=== PATIENT | male | born 1985 | race African-American/Black ===

== ENCOUNTER 2017-03-31 17:35 | Emergency (ER) | payer OTHER ==
--- NOTE | 2017-03-31 18:57 | ER Document Report ---
ED Oral Problem - General Mode of Arrival: Ambulatory Information source: Patient TRAVEL OUTSIDE OF THE [place] IN LAST 30 DAYS: No - General Chief Complaint: Mouth Problem Stated Complaint: MOUTH PAIN Time Seen by Provider: 03/31/17 18:31 - HPI Notes: Patient is a 32-year-old male presents emergency department with upper left jaw pain 2-3 days. Patient states that he believes he broke his tooth when he was eating something. Patient states he has cold sensitivity and pain with chewing. Patient has had a decreased appetite. Patient denies any facial swelling, drainage from his tooth, or any fevers. Patient does not have a dentist and states that he recently moved to the area and does not have dental insurance. Patient does ask about any dental clinics in the area. Patient has a history of hypertension. (JOHN KAUFMAN) - Related Data Allergies/Adverse Reactions: banana Allergy (Verified 03/31/17 18:22) NSAIDS (Non-Steroidal Anti-Inflamma Allergy (Verified 03/31/17 18:22) Past Medical History - General Information source: Patient - Social History Smoking Status: Never Smoker Cigarette use (# per day): No Chew tobacco use (# tins/day): No Smoking Education Provided: No Frequency of alcohol use: Rare Drug Abuse: None Family History: None Patient has suicidal ideation: No Patient has homicidal ideation: No - Past Medical History Cardiac Medical History: Reports: Hx Hypertension GI Medical History: Reports: Hx Hiatal Hernia Past Surgical History: Reports: Hx Orthopedic Surgery Review of Systems - Review of Systems Constitutional: No symptoms reported EENT: See HPI, Mouth pain, Dental problem Skin: No symptoms reported -: Yes All other systems reviewed and negative Physical Exam - Vital signs Interpretation: Normal - Vital signs Vitals: Temp Pulse Resp BP Pulse Ox 98.1 F 65 16 144/94 H 97 03/31/17 18:20 03/31/17 18:20 03/31/17 18:20 03/31/17 18:20 03/31/17 18:20 - Notes Notes: GENERAL: Alert, interacts well. No acute distress. HEAD: Normocephalic, atraumatic. No facial swelling. EYES: Pupils equal, round, and reactive to light. Extraocular movements intact. ENT: Oral mucosa moist, tongue midline. Filling is in a good position with no missing pieces. Filling appears to be made of metallic amalgam. Tooth #14 is tender to palpate and percuss as well as tenderness to the gums above this tooth. No erythema, sign of abscess, or swelling. Small petechiae which is suspicious for a possible infection. NECK: Full range of motion. Supple. Trachea midline. LUNGS: No respiratory distress. EXTREMITIES: Moves all 4 extremities spontaneously. No edema. No cyanosis. NEUROLOGICAL: Alert and oriented x3. Normal speech. PSYCH: Normal affect, normal mood. SKIN: Warm, dry, normal turgor. (JOHN KAUFMAN) Course - Re-evaluation Re-evalutation: 03/31/17 19:45 Dental blocks including inferior alveolar and infraorbital blocks were done on the left-hand side using a combination of lidocaine 1% and bupivacaine 0.5% using a total 5 mL's of a 50-50 mixture. Patient tolerated this well, will be started on Pen-Vee K and discharged to home with Tessalon Luises and referrals to dental clinics. (NEGIN HARRINGTON) - Vital Signs Vital signs: Temp Pulse Resp BP Pulse Ox 98.1 F 66 18 135/100 H 98 03/31/17 18:20 03/31/17 20:11 03/31/17 20:11 03/31/17 20:11 03/31/17 20:11 Discharge - Discharge Clinical Impression: Pain, dental Hypertension Qualifiers: Hypertension type: essential hypertension Qualified Code(s): I10 - Essential ( primary) hypertension Condition: Stable Disposition: HOME, SELF-CARE Additional Instructions: Dental Infection or Abscess You have an infection of the gum around one of your teeth, which is probably decayed. If there is an abscess, it may drain on its own or it may need to be opened or lanced. Severe swelling or drainage around a tooth usually means a deep dental abscess which usually requires evaluation and treatment by a dentist or oral surgeon. Antibiotics may be prescribed while awaiting dental treatment. If you develop high fever with chills, worsening pain, or increasing swelling in the area, see a dentist or oral surgeon immediately or return to the Emergency Department immediately. Prescriptions: Benzonatate [Tessalon Perles 100 mg Capsule] 100 mg PO Q8HP PRN #30 capsule PRN Reason: Penicillin V Potassium [Penicillin Vk 500 mg Tablet] 500 mg PO BID #20 tablet Referrals: [facility] [Provider Group] - Follow up as needed Scribe Attestation: 03/31/17 23:56 I personally performed the services described in the documentation, reviewed and edited the documentation which was dictated to the scribe in my presence, and it accurately records my words and actions. (NEGIN HARRINGTON) Scribe Documentation - Scribe Written by Vanesa:: Vanesa Bronson, 03/31/2017, 19:30 acting as scribe for :: Sue
[2017-03-31] MEDS ORDERED: LIDOCAINE 1% INJ-PF (10 MG/ML) 30 ML SDV INJ ONE (19:12)
[2017-03-31] MEDS ORDERED: BUPIVACAINE HCL 0.5 % INJ/PF 30 ML SDV INJ ONE (19:12)
[2017-03-31] MEDS ORDERED: PENICILLIN V POTASSIUM 500 MG TABLET PO ONE (19:14)
[2017-03-31 20:15] VITALS: BP 135/100
== END 2017-03-31 20:14 | disposition home or self-care (01) ==
LOC: ER 17:35
PROC: 3E0T3BZ Introduction of Anesthetic Agent into Peripheral Nerves and Plexi, Percutaneous Approach (ICD-10-PCS; principal; 2017-03-31)
DX: K08.89 Other specified disorders of teeth and supporting structures (principal); R68.84 Jaw pain; I10 Essential (primary) hypertension
CPT/HCPCS: 99282; 64400; J3490

== ENCOUNTER 2017-07-22 16:03 | Emergency (ER) | payer OTHER ==
[2017-07-22 16:34] VITALS: BP 132/79
[2017-07-22] MEDS ORDERED: TRAMADOL HCL 50 MG TABLET PO ONE (16:42)
--- NOTE | 2017-07-22 16:49 | ER Document Report ---
ED Extremity Problem, Lower - General Chief Complaint: Knee Pain Stated Complaint: RIGHT KNEE PAIN Time Seen by Provider: 07/22/17 16:28 Mode of Arrival: Ambulatory Information source: Patient Notes: 32-year-old male presents to ED for complaint of right knee pain for the last day and a half. He states he has chronic pain and this area but his [place] doctor who prescribes him his medication did not write him a new prescription because he needed to have his lab work completed first. TRAVEL OUTSIDE OF THE [place] IN LAST 30 DAYS: No - HPI Patient complains to provider of: Pain Location: Knee Occurred: Other - 1.5 days and chronic Where: Home, Indoors Onset/Duration: Intermittent Quality of pain: Sharp Severity: Moderate Pain Level: 3 Context: Other - painful ambulation Recent injury: No Associated symptoms: Painful ambulation Exacerbated by: Movement, Walking Relieved by: Nothing - Related Data Allergies/Adverse Reactions: banana Allergy (Verified 07/22/17 16:31) NSAIDS (Non-Steroidal Anti-Inflamma Allergy (Verified 07/22/17 16:31) Home Medications: Current Home Medications Amlodipine Besylate 10 mg PO QHS 07/22/17 [History] Atorvastatin Calcium 20 mg PO QHS 07/22/17 [History] Duloxetine HCl 20 mg PO DAILY 07/22/17 [History] Methocarbamol [Robaxin] 500 mg PO ASDIR PRN 07/22/17 [History] Nortriptyline HCl 4 tab PO QHS 07/22/17 [History] Tramadol HCl [Ultram] 50 mg PO ASDIR PRN 07/22/17 [History] Past Medical History - General Information source: Patient - Social History Smoking Status: Former Smoker Cigarette use (# per day): No Chew tobacco use (# tins/day): No Smoking Education Provided: No Frequency of alcohol use: Rare Drug Abuse: None Lives with: Family Family History: None Patient has suicidal ideation: No Patient has homicidal ideation: No - Past Medical History Cardiac Medical History: Reports: Hx Hypercholesterolemia, Hx Hypertension Pulmonary Medical History: Reports: None EENT Medical History: Reports: None Neurological Medical History: Reports: None Endocrine Medical History: Reports: None Renal/ Medical History: Reports: None GI Medical History: Reports: Hx Gastritis, Hx Hiatal Hernia, Hx Ulcer, Hx Colonoscopy, Hx Endoscopy Musculoskeltal Medical History: Reports Hx Arthritis, Reports Hx Musculoskeletal Deformity, Reports Hx Musculoskeletal Trauma Skin Medical History: Reports None Psychiatric Medical History: Reports: None Traumatic Medical History: Reports: Hx Fractures Infectious Medical History: Reports: None Past Surgical History: Reports: Hx Orthopedic Surgery Review of Systems - Review of Systems Constitutional: No symptoms reported EENT: No symptoms reported Cardiovascular: No symptoms reported Respiratory: No symptoms reported Gastrointestinal: No symptoms reported Genitourinary: No symptoms reported Male Genitourinary: No symptoms reported Musculoskeletal: Other - right knee pain wearing a brace in the ed Skin: No symptoms reported Hematologic/Lymphatic: No symptoms reported Neurological/Psychological: No symptoms reported -: Yes All other systems reviewed and negative Physical Exam - Vital signs Vitals: Temp Pulse Resp BP Pulse Ox 97.9 F 101 H 16 132/79 H 98 07/22/17 16:26 07/22/17 16:26 07/22/17 16:26 07/22/17 16:26 07/22/17 16:26 Interpretation: Normal - General General appearance: Appears well, Alert - HEENT Head: Normocephalic, Atraumatic Eyes: Normal Pupils: PERRL - Respiratory Respiratory status: No respiratory distress Chest status: Nontender Breath sounds: Normal Chest palpation: Normal - Cardiovascular Rhythm: Regular Heart sounds: Normal auscultation Murmur: No - Abdominal Inspection: Normal Distension: No distension Bowel sounds: Normal Tenderness: Nontender Organomegaly: No organomegaly - Back Back: Normal, Nontender - Extremities General upper extremity: Normal inspection, Nontender, Normal color, Normal ROM , Normal temperature General lower extremity: Normal inspection, Normal color, Normal ROM, Normal temperature, Normal weight bearing. No: Lizy's sign Knee: Tender, Pain with ROM, Patellar tendon intact, Tender joint line. No: Abrasion, Deformity, Dislocation, Drawer's test instability, Ecchymosis, Instability, Joint effusion, Laceration, Laxity with valgus stress, Laxity with varus stress, Popliteal fossa tender - Neurological Neuro grossly intact: Yes Cognition: Normal Orientation: AAOx4 Katiana Coma Scale Eye Opening: Spontaneous Amity Coma Scale Verbal: Oriented Katiana Coma Scale Motor: Obeys Commands Katiana Coma Scale Total: 15 Speech: Normal Motor strength normal: LUE, RUE, LLE, RLE Sensory: Normal - Psychological Associated symptoms: Normal affect, Normal mood - Skin Skin Temperature: Warm Skin Moisture: Dry Skin Color: Normal Course - Vital Signs Vital signs: Temp Pulse Resp BP Pulse Ox 97.9 F 101 H 16 132/79 H 98 07/22/17 16:26 07/22/17 16:26 07/22/17 16:26 07/22/17 16:26 07/22/17 16:26 Discharge - Discharge Clinical Impression: Chronic pain of right knee HTN (hypertension) Qualifiers: Hypertension type: unspecified Qualified Code(s): I10 - Essential (primary) hypertension Condition: Stable Disposition: HOME, SELF-CARE Additional Instructions: He was seen today for chronic right knee pain. He states he did not fall and have not had any injury. He states his been hurting for about a day and a half. He states he normally take Ultram, Robaxin, nortriptyline, and Cymbalta for your chronic pain. He states she been out of Ultram and Robaxin for a couple months because you get these from the [place] and she has not written any recently. I will give you one Ultram while in the emergency room but you need to follow-up with your [facility] doctor for any further pain medications as we do not treat chronic pain with narcotics and you state you have a problem taken ibuprofen due to your history of IBS and colon polyps. Call your [facility] doctor on Tuesday and tell them again that you are out of your pain medications. Use elevation ice and warm packs for your chronic pain. You can also use Aspercreme to the area. Continue wearing her brace as you work today. ICE & ELEVATION: Apply ice packs frequently against the painful area. Many different schedules are recommended, such as "20 minutes on, 20 minutes off" or "one hour ice, two hours rest." If you need to work, you may need to go longer between ice treatments. You should plan to have the area ice packed AT LEAST one- fourth of the time. The ice should be applied over the wrap, tape, or splint, or over a layer of cloth -- not directly against the skin. Some ice bags have a built-in cloth and can be put directly on the skin. Your injured part should be elevated as much as possible over the next 48 hours. Try to keep the injury above the level of the heart. Avoid use of the injured area. Elevation and rest will decrease the swelling. Ultram You were given and Ultram while in the emergency room today. Follow-up with your primary doctor to get a refill on your Ultram Ultram is an excellent drug for pain relief. It is not a narcotic, but it works in a similar way. Ultram can take up to two hours for full effect. Although not addicting, Ultram is best avoided in patients with a history of drug abuse. Ultram should not be used with alcohol, sleeping pills, or narcotics. If you're prone to seizures, Ultram can make you more likely to have a seizure. Ultram can be hazardous when combined with MAO-inhibitor antidepressants (such as Nardil or Parnate). Be sure your doctor is aware of all medicines you are taking. Persons with severe liver or kidney disease should increase the time between doses of Ultram. Discuss this with your doctor if you're uncertain. Side effects of Ultram can include dizziness, nausea, constipation, sleepiness, and itching. (These side effects are also seen with narcotic pain medicines.) Please call your doctor if you have other disturbing effects. FOLLOW-UP CARE: If you have been referred to a physician for follow-up care, call the physician s office for an appointment as you were instructed or within the next two days. If you experience worsening or a significant change in your symptoms, notify the physician immediately or return to the Emergency Department at any time for re-evaluation. Forms: Elevated Blood Pressure
== END 2017-07-22 17:14 | disposition home or self-care (01) ==
LOC: ER 16:03
DX: G89.29 Other chronic pain (principal); M25.561 Pain in right knee; I10 Essential (primary) hypertension; Z91.018 Allergy to other foods; Z88.8 Allergy status to other drugs, medicaments and biological substances; Z87.891 Personal history of nicotine dependence
CPT/HCPCS: 99283

== ENCOUNTER 2018-01-09 08:21 | Day surgery (SDC) | payer MEDICAID, OTHER ==
[~2018-01-09 08:21] MED LIST: PROPOFOL INJ 200 MG/20 ML VIAL IV ONE
[2018-01-09 10:32] VITALS: BP 102/78
--- NOTE | 2018-01-09 12:08 | Operative Report ---
Operative Report DATE OF SURGERY: 01/09/18 Operative Report: The risks, benefits and alternatives of the procedure including risk of bleeding , perforation requiring surgery are explained to the patient in detail and informed consent is obtained. The patient was brought back to the endoscopy suite and placed in the left, lateral decubital position. Timeout was called. Propofol medication is administered. A rectal examination is done which did not reveal any masses, tears or fissures. An Olympus endoscope was inserted into the patient's rectum. The scope was then carefully advanced all the way to the cecum. The cecum was identified by the usual anatomical landmarks including the ileocecal valve as well as appendiceal office. Photodocumentation was obtained. The scope was then sequentially pulled back via the various segments of the colon including the ascending colon, hepatic flexure, transverse colon, splenic flexure, descending colon and finally to the rectosigmoid portions of the colon. Retroflexion maneuver was performed. The risks benefits and alternatives of the procedure explained to the patient in detail and informed consent is obtained.A GIF Olympus video scope was inserted into the patient's mouth and hypopharynx, the esophagus is identified intubated and insufflated ,the scope was then advanced through the esophagus stomach and duodenum ,retroflexion maneuver is done ,the esophagus stomach and first and second portions of the duodenum examined PREOPERATIVE DIAGNOSIS: Personal history of polyps POSTOPERATIVE DIAGNOSIS: Right-sided colon inflammation status post biopsy. Internal hemorrhoids. Gastritis status post biopsy rule out Helicobacter pylori OPERATION: Colonoscopy with biopsy. EGD with biopsy SURGEON: GALLO BETANCOURT ANESTHESIA: LMAC TISSUE REMOVED OR ALTERED: As noted above. COMPLICATIONS: None. ESTIMATED BLOOD LOSS: None. INTRAOPERATIVE FINDINGS: As noted above. PROCEDURE: Patient tolerated the procedure well. No immediate postprocedure complications are noted. Patient discharged in good condition. Discharge date 01/09/2018. Discharge diet: Regular. Discharge activity: Regular. 2-3-week follow-up to discuss findings. Patient is instructed to call the office or proceed to the emergency room should there be any further problems or questions. Wait on the pathology.
== END 2018-01-09 10:10 | disposition home or self-care (01) ==
LOC: END 08:21
PROVIDERS: ATTEND Internal Medicine Gastroenterology
DX: Z12.11 Encounter for screening for malignant neoplasm of colon (principal); K52.9 Noninfective gastroenteritis and colitis, unspecified; K64.8 Other hemorrhoids; Z86.010 Personal history of colon polyps; K29.50 Unspecified chronic gastritis without bleeding; K21.9 Gastro-esophageal reflux disease without esophagitis; I10 Essential (primary) hypertension; M19.90 Unspecified osteoarthritis, unspecified site
CPT/HCPCS: 43239; 45380; 88342 ×2; 88305 ×2; J2704; 813

== ENCOUNTER → 2018-05-06 | Outpatient (CLI) | payer MEDICAID ==
[2018-05-06 10:08] LABS: ABSOLUTE EOSINOPHILS # (AUTO) 0.2 10^3/uL (0.0-0.6); ABSOLUTE LYMPHOCYTES (AUTO) 1.4 10^3/uL (0.5-4.7); ABSOLUTE MONOCYTES (AUTO) 0.4 10^3/uL (0.1-1.4); ABSOLUTE NEUT (AUTO) 2.4 10^3/uL (1.7-8.2); BASOPHILS % (AUTO) 0.9 % (0-2); EOSINOPHILS % (AUTO) 4.5 % (0-6); LYMPHOCYTES % (AUTO) 32.3 % (13-45); MEAN CORPUSCULAR HEMOGLOBIN 32.1 pg (27.0-33.4); MEAN CORPUSCULAR HGB CONC 34.2 g/dL (32.0-36.0); MEAN CORPUSCULAR VOLUME 94 fl (80-97); MONOCYTES % (AUTO) 8.5 % (3-13); PLATELET COUNT 210 10^3/uL (150-450); RED BLOOD COUNT 4.68 10^6/uL (4.35-5.55); RED CELL DISTRIBUTION WIDTH 13.8 % (11.5-14.0); SEGMENTED NEUTROPHILS % (AUTO) 53.8 % (42-78); TOTAL CELLS COUNTED % (AUTO) 100 %; WHITE BLOOD COUNT 4.4 10^3/uL (4.0-10.5)
[2018-05-06 10:18] LABS: ALANINE AMINOTRANSFERASE 63 U/L (21-72); ALBUMIN 4.1 g/dL (3.5-5.0); ALKALINE PHOSPHATASE 53 U/L (38-126); ANION GAP 6 (5-19); ASPARTATE AMINO TRANSFERASE 34 U/L (17-59); BILIRUBIN,DIRECT 0.2 mg/dL (0.0-0.4); BILIRUBIN,TOTAL 0.5 mg/dL (0.2-1.3); BLOOD UREA NITROGEN 17 mg/dL (7-20); CALCIUM 9.2 mg/dL (8.4-10.2); CARBON DIOXIDE 26 mmol/L (22-30); CHLORIDE 110 mmol/L (98-107); CHOLESTEROL 152.81 mg/dL (0-200); GLUCOSE 86 mg/dL (75-110); POTASSIUM 4.6 mmol/L (3.6-5.0); SODIUM 142.4 mmol/L (137-145); TOTAL PROTEIN 7.4 g/dL (6.3-8.2); TRIGLYCERIDES 71 mg/dL (<150)
[2018-05-06 10:29] LABS: DIRECT LDL 66 mg/dL (<100)
== END ==
LOC: LAB 09:47
PROVIDERS: ATTEND Nurse Practitioner Family
DX: I10 Essential (primary) hypertension (principal)
CPT/HCPCS: 36415; 80053; 80061; 84443; 85025

== ENCOUNTER 2018-07-07 20:45 | Emergency (ER) | payer MEDICAID ==
[2018-07-07 20:54] VITALS: BP 144/87
--- NOTE | 2018-07-07 21:44 | ER Document Report ---
ED General - General Chief Complaint: Back Pain Stated Complaint: BACK PAIN Time Seen by Provider: 07/07/18 21:31 Notes: Patient is a 33-year-old male who presents emergency department with left back pain. He states his pain is mainly in his left flank area. He denies any heavy lifting. When asked if his back hurts normally, he said yes, but this pain is different. He feels it is more of an internal pain. He denies any dysuria or hematuria. He has a history of hypertension, GERD, and dyslipidemia. He has not taken any medication to help with the pain. TRAVEL OUTSIDE OF THE [place] IN LAST 30 DAYS: No - Related Data Allergies/Adverse Reactions: NSAIDS (Non-Steroidal Anti-Inflamma Allergy (Severe, Verified 01/09/18 08:42) SWELLING BLEEDING banana Allergy (Intermediate, Verified 01/09/18 08:42) ITCHING Past Medical History - Social History Smoking Status: Never Smoker Frequency of alcohol use: None Lives with: Spouse/Significant other Family History: None, Reviewed & Not Pertinent - Past Medical History Cardiac Medical History: Reports: Hx Hypercholesterolemia, Hx Hypertension Denies: Hx Coronary Artery Disease, Hx Heart Attack Pulmonary Medical History: Denies: Hx Asthma, Hx Bronchitis, Hx COPD, Hx Pneumonia Neurological Medical History: Denies: Hx Cerebrovascular Accident, Hx Seizures Renal/ Medical History: Denies: Hx Peritoneal Dialysis GI Medical History: Reports: Hx Gastritis, Hx Hiatal Hernia, Hx Ulcer, Hx Colonoscopy, Hx Endoscopy Musculoskeletal Medical History: Reports Hx Arthritis, Reports Hx Musculoskeletal Deformity, Reports Hx Musculoskeletal Trauma Traumatic Medical History: Reports: Hx Fractures Past Surgical History: Reports: Hx Orthopedic Surgery - Immunizations Hx Diphtheria, Pertussis, Tetanus Vaccination: Yes Review of Systems - Review of Systems Notes: REVIEW OF SYSTEMS: CONSTITUTIONAL : Denies recent illness. Denies recent unintentional weight loss. Denies fever, chills, or sweats. EENT: Denies eye, ear, throat, or mouth pain, discharge, or symptoms. Denies nasal or sinus congestion. CARDIOVASCULAR: Denies chest pain. RESPIRATORY: Denies shortness of breath, cough, congestion, difficulty breathing , or wheezing. GASTROINTESTINAL: Denies nausea, vomiting, and diarrhea. Denies abdominal pain. Denies constipation. GENITOURINARY: Denies difficulty urinating, burning, blood in urine, urgency or frequency. MUSCULOSKELETAL: See HPI SKIN: Denies rash, itchiness, or lesions HEMATOLOGIC : Denies easy bruising or bleeding. LYMPHATIC: Denies swollen, painful, enlarged glands. NEUROLOGICAL: Denies no numbness or tingling denies weakness. Denies headache. Denies altered mental status. Denies alteration in speech. PSYCHIATRIC: Denies stress, anxiety, alteration in sleep patterns, or depression. All other systems reviewed and negative. Physical Exam - Vital signs Vitals: Temp Pulse BP Pulse Ox 98.5 F 80 144/87 H 97 07/07/18 20:51 07/07/18 20:51 07/07/18 20:51 07/07/18 20:51 - Notes Notes: PHYSICAL EXAMINATION: GENERAL: Appears well, healthy, well-nourished, no acute distress. HEAD: Normocephalic, atraumatic. EYES: PERRL, conjunctiva normal, all extraocular movements intact, sclera nonicteric ENT: Moist mucous membranes. NECK: Supple, no noticeable swelling, redness, rash. Normal range of motion. LUNGS: Equal breath sounds bilaterally and clear to auscultation. No wheezes rales or rhonchi. CARDIOVASCULAR: S1-S2, regular rate, regular rhythm. Radial pulses 2+, normal. ABDOMEN: Normoactive bowel sounds. Soft, nontender, no guarding, no rebound tenderness, and no masses palpated. EXTREMITIES: Normal strength and range of motion, no pitting or edema. No cyanosis. NEUROLOGICAL: Moves all extremities upon command. Strength 5/5 in all extremities. PSYCH: Normal mood, normal affect. SKIN: Warm, dry. No rash, lesions, ulcerations noted. Normal skin turgor. Course - Re-evaluation Re-evalutation: 07/07/18 23:19 Patient's urinalysis is unremarkable. When asked again about his pain, he stated that when he eats his pain is worse. He will be given a GI cocktail to help with his pain. He will also be sent for an ultrasound for further diagnostic examination. 07/08/18 01:00 Patient's ultrasound shows multiple small stones, with the largest being 8 mm in size. I have discussed these findings with the patient. He will be given Flomax for his kidney stones. He will also be given oral morphine for the pain. - Vital Signs Vital signs: Temp Pulse Resp BP Pulse Ox 98.5 F 80 144/87 H 97 07/07/18 20:51 07/07/18 20:51 07/07/18 20:51 07/07/18 20:51 - Laboratory Laboratory results interpreted by me: 07/07/18 22:00 Urine Ascorbic Acid 40 H Discharge - Discharge Clinical Impression: Kidney stones Condition: Stable Disposition: HOME, SELF-CARE Additional Instructions: You are seen in the emergency department for left back pain. You have kidney stones, causing your back pain. Please follow-up with a urologist on Tuesday. You can take morphine, the prescription you were given during this visit as needed for the pain. You have also been given a medication called Flomax, medication to help you pass the stones. If you have worsening pain, develop a fever greater than 100.4 F, or have any symptoms that are worrisome to you, please return to the emergency department. Prescriptions: Morphine Sulfate [Morphine Ir 15 Mg Tablet] 15 mg PO BID #8 tablet Tamsulosin HCl [Flomax 0.4 mg Cap.sr] 0.4 mg PO DAILY #10 cap.sr.24h Referrals: [facility] [Provider Group] - 07/10/18
[2018-07-07] MEDS ORDERED: ACETAMINOPHEN 325 MG TABLET PO ONE (22:06)
[2018-07-07 22:17] LABS: APPEARANCE,URINE CLEAR; BILIRUBIN,URINE NEGATIVE (NEGATIVE); COLOR,URINE YELLOW; GLUCOSE, URINE NEGATIVE (NEGATIVE); KETONES,URINE NEGATIVE (NEGATIVE); LEUKOCYTE ESTERASE,URINE NEGATIVE (NEGATIVE); NITRITE,URINE NEGATIVE (NEGATIVE); PROTEIN,URINE NEGATIVE (NEGATIVE); URINE SPECIFIC GRAVITY 1.025; UROBILINOGEN,URINE NEGATIVE mg/dL (<2.0)
[2018-07-07] MEDS ORDERED: MAG HYDROX/AL HYDROX/SIMETH SUSP 30 ML UDCUP PO ONE (22:48)
[2018-07-07] MEDS ORDERED: METOCLOPRAMIDE HCL ORAL SOLN 10 MG/10 ML UDCUP PO ONE (22:48)
[2018-07-07] MEDS ORDERED: LIDOCAINE 2% VISCOUS SOLN 20 ML UDCUP PO ONE (22:48)
--- NOTE | 2018-07-08 00:35 | RADIOLOGY REPORT (SQ) ---
EXAM DESCRIPTION: US ABDOMEN DOPPLER LIMITED COMPLETED DATE/TME: 07/07/2018 22:48 CLINICAL HISTORY: 33 years Male Left upper abdominal pain COMPARISON: None. TECHNIQUE: Transabdominal grayscale imaging performed to evaluate the left upper quadrant FINDINGS: Left kidney measures 9.4 cm. No hydronephrosis. Multiple small echogenic foci in the kidney and the largest measuring 8 mm. Spleen is normal in size. IMPRESSION: Left renal calculi without hydronephrosis
[2018-07-08] MEDS ORDERED: KETOROLAC TROMETHAMINE 60 MG/2 ML SDV IM ONE (01:08)
== END 2018-07-08 01:42 | disposition home or self-care (01) ==
LOC: ER 20:45
DX: N20.0 Calculus of kidney (principal); M54.9 Dorsalgia, unspecified; E78.00 Pure hypercholesterolemia, unspecified; I10 Essential (primary) hypertension
CPT/HCPCS: 99284; 96372; 81001; 76705; 93976; J3490 ×4; J1885

== ENCOUNTER 2018-08-10 00:58 | Emergency (ER) | payer MEDICAID ==
[2018-08-10] MEDS ORDERED: TETRACAINE HCL 0.5% OPH SOLN 4 ML OU ONE (01:24)
[2018-08-10 02:24] VITALS: BP 143/82
--- NOTE | 2018-08-10 02:30 | ER Document Report ---
ED General - General Chief Complaint: Eye Injury Stated Complaint: EYE PROBLEM Time Seen by Provider: 08/10/18 01:23 Notes: Patient is a 33-year-old male who presents with complaint of bilateral eye pain. 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 Says he does not remember a specific flash but got home from work and lay down and woke up with severe eye pain and redness. Therefore came to the ER. He denies any trauma to the eyes. No foreign bodies into the eyes. No other complaints at this time. Bright lights make the eye pain much worse. TRAVEL OUTSIDE OF THE [place] IN LAST 30 DAYS: No - Related Data Allergies/Adverse Reactions: NSAIDS (Non-Steroidal Anti-Inflamma Allergy (Severe, Verified 01/09/18 08:42) SWELLING BLEEDING banana Allergy (Intermediate, Verified 01/09/18 08:42) ITCHING Past Medical History - Social History Smoking Status: Never Smoker Chew tobacco use (# tins/day): No Frequency of alcohol use: None Drug Abuse: None Family History: None, Reviewed & Not Pertinent Patient has suicidal ideation: No Patient has homicidal ideation: No - Past Medical History Cardiac Medical History: Reports: Hx Hypercholesterolemia, Hx Hypertension Denies: Hx Coronary Artery Disease, Hx Heart Attack Pulmonary Medical History: Denies: Hx Asthma, Hx Bronchitis, Hx COPD, Hx Pneumonia Neurological Medical History: Denies: Hx Cerebrovascular Accident, Hx Seizures Renal/ Medical History: Denies: Hx Peritoneal Dialysis GI Medical History: Reports: Hx Gastritis, Hx Hiatal Hernia, Hx Ulcer, Hx Colonoscopy, Hx Endoscopy Musculoskeletal Medical History: Reports Hx Arthritis, Reports Hx Musculoskeletal Deformity, Reports Hx Musculoskeletal Trauma Traumatic Medical History: Reports: Hx Fractures Past Surgical History: Reports: Hx Orthopedic Surgery - Immunizations Hx Diphtheria, Pertussis, Tetanus Vaccination: Yes Review of Systems - Review of Systems Notes: My Normal Review Basic REVIEW OF SYSTEMS: CONSTITUTIONAL : Denies fever, chills, or sweats. Denies recent illness. EENT: Eye pain. No runny nose cough or congestion. SKIN: Denies rash or skin lesions. HEMATOLOGIC : Denies easy bruising or bleeding. NEUROLOGICAL: Denies altered mental status or loss of consciousness. Denies weakness or paralysis or loss of use of either side. Denies problems with gait or speech. Denies sensory or motor loss. ALL OTHER SYSTEMS REVIEWED AND NEGATIVE. Physical Exam - Vital signs Vitals: Temp Pulse Resp BP Pulse Ox 97.9 F 100 20 144/88 H 100 08/10/18 01:02 08/10/18 01:02 08/10/18 01:02 08/10/18 01:02 08/10/18 01:02 - Notes Notes: General Appearance: Well nourished, alert, cooperative, no acute distress, moderate obvious discomfort. Vitals: reviewed, See vital signs table. Head: no swelling or tenderness to the head Eyes: Patient has some mild conjunctival redness bilaterally. He has some photophobia which is improved after placing tetracaine in the eyes. Some clear watery drainage from the eyes. Pupils are normal shape and reactive to light. Good extraocular motion. No hyphema. No hypopyon. No fluorescein uptake on fluorescein staining. Neuro: speech clear, oriented x 3, normal affect, responds appropriately to questions. - HEENT Visual acuity- Right eye: 20/50 Visual acuity- Left eye: 20/50 Visual acuity- Both eyes: 20/50 Corrective lenses worn: No Course - Re-evaluation Re-evalutation: 08/10/18 05:25 I discussed the case with her airfield manager, Dr. Patterson, he says to have the patient do with mycin ointment in the eye and that he would see the patient in his office today. I explained the plan to the patient is agreeable to it. I informed patient to return to ER immediately if he has rectal pain, abnormal drainage from the eyes, fevers, or if he has any further concerns. Patient agrees with plan will be discharged home. Dictation of this chart was performed using voice recognition software; therefore, there may be some unintended grammatical errors. - Vital Signs Vital signs: Temp Pulse Resp BP Pulse Ox 97.7 F 98 18 143/82 H 100 08/10/18 02:22 08/10/18 02:22 08/10/18 02:22 08/10/18 02:22 08/10/18 02:22 Discharge - Discharge Clinical Impression: Welders' keratitis of both eyes Condition: Good Disposition: HOME, SELF-CARE Additional Instructions: Please follow up with the eye doctor, Dr. Patterson, in 1-2 days for reevaluation. You can call his office first thing in the morning to make the follow up appointment. Please wear sun glasses. Please return to the ER if you have worsening pain, increasing redness to your eyes, swelling, or if you feel that you are worsening in any way. Please apply erythromycin ointment to your eyes once every 6 hours to keep them lubricated and to help prevent infection. Forms: Return to Work Referrals: MARY KATE PATTERSON, [ACTIVE STAFF] - Follow up tomorrow
[2018-08-10] MEDS ORDERED: ERYTHROMYCIN 0.5% OPH OINTMENT 3.5 GM (ER DISP) OU PRN (02:40)
== END 2018-08-10 02:48 | disposition home or self-care (01) ==
LOC: ER 00:58
DX: H16.133 Photokeratitis, bilateral (principal); H57.13 Ocular pain, bilateral; W89.8XXA Exposure to other man-made visible and ultraviolet light, initial encounter; Y99.0 Civilian activity done for income or pay; E78.00 Pure hypercholesterolemia, unspecified; I10 Essential (primary) hypertension
CPT/HCPCS: 99283

== ENCOUNTER 2018-09-10 17:32 | Emergency (ER) | payer MEDICAID ==
[2018-09-10 17:41] VITALS: BP 141/85
[2018-09-10] MEDS ORDERED: TETRACAINE HCL 0.5% OPH SOLN 4 ML OS ONE (18:34)
[2018-09-10] MEDS ORDERED: KETOROLAC TROMETHAMINE 0.45% 4 DROP/0.4 ML DROPERETTE OS ONE (20:11)
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
[2018-09-10] MEDS ORDERED: POLYMYXIN B SULFATE/TMP OPH SOLN (10 ML/ER DISP) OS ONE (20:14)
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
== END 2018-09-10 20:51 | disposition home or self-care (01) ==
LOC: ER 17:32
DX: S05.02XA Injury of conjunctiva and corneal abrasion without foreign body, left eye, initial encounter (principal); H57.12 Ocular pain, left eye; H53.8 Other visual disturbances; R51 Headache; X58.XXXA Exposure to other specified factors, initial encounter; I10 Essential (primary) hypertension
CPT/HCPCS: 99283; J3490 ×3

== ENCOUNTER 2018-09-28 13:00 | Emergency (ER) | payer OTHER, MEDICAID ==
[2018-09-28] MEDS ORDERED: OXYCODONE-ACETAMINOPHEN 5-325 MG TABLET PO ONE (13:46)
[2018-09-28] MEDS ORDERED: DIPH/PERTUSS(ACELL)/TETANUS VAC/PF 0.5 ML SYR (>=10YO) IM ONE (13:46)
--- NOTE | 2018-09-28 13:48 | ER Document Report ---
ED Medical Screen (RME) - General Chief Complaint: Laceration Stated Complaint: LACERATION ON LEFT INDEX FINGER Time Seen by Provider: 09/28/18 13:42 Primary Care Provider: REBECA LEMA NP [Primary Care Provider] - Follow up as needed Mode of Arrival: Ambulatory Information source: Patient Notes: This is a 33-year-old man who sustained a laceration to the left index finger while working with a power saw. Patient's last tetanus shot is unknown. TRAVEL OUTSIDE OF THE [place] IN LAST 30 DAYS: No - Related Data Allergies/Adverse Reactions: NSAIDS (Non-Steroidal Anti-Inflamma Allergy (Severe, Verified 09/28/18 13:06) SWELLING BLEEDING banana Allergy (Intermediate, Verified 09/28/18 13:06) ITCHING Past Medical History - Social History Chew tobacco use (# tins/day): No Frequency of alcohol use: None Drug Abuse: None - Past Medical History Cardiac Medical History: Reports: Hx Hypercholesterolemia, Hx Hypertension Denies: Hx Coronary Artery Disease, Hx Heart Attack Pulmonary Medical History: Denies: Hx Asthma, Hx Bronchitis, Hx COPD, Hx Pneumonia Neurological Medical History: Denies: Hx Cerebrovascular Accident, Hx Seizures Renal/ Medical History: Denies: Hx Peritoneal Dialysis GI Medical History: Reports: Hx Gastritis, Hx Hiatal Hernia, Hx Ulcer, Hx Colonoscopy, Hx Endoscopy Musculoskeltal Medical History: Reports Hx Arthritis, Reports Hx Musculoskeletal Deformity, Reports Hx Musculoskeletal Trauma Traumatic Medical History: Reports: Hx Fractures Past Surgical History: Reports: Hx Orthopedic Surgery - Immunizations Hx Diphtheria, Pertussis, Tetanus Vaccination: Yes Physical Exam - Vital signs Vitals: Temp Pulse Resp BP Pulse Ox 99.3 F 107 H 17 151/81 H 100 09/28/18 13:09 09/28/18 13:09 09/28/18 13:09 09/28/18 13:09 09/28/18 13:09 Course - Vital Signs Vital signs: Temp Pulse Resp BP Pulse Ox 99.3 F 107 H 17 151/81 H 100 09/28/18 13:09 09/28/18 13:09 09/28/18 13:09 09/28/18 13:09 09/28/18 13:09 Doctor's Discharge - Discharge Referrals: REBECA LEMA NP [Primary Care Provider] - Follow up as needed
--- NOTE | 2018-09-28 14:09 | RADIOLOGY REPORT (SQ) ---
EXAM DESCRIPTION: FINGER LEFT COMPLETED DATE/TIME: 09/28/2018 1:59 pm REASON FOR STUDY: Left index finger laceration COMPARISON: None. NUMBER OF VIEWS: Three views. TECHNIQUE: AP, lateral, and oblique images acquired of the left second finger. LIMITATIONS: None. FINDINGS: MINERALIZATION: Normal. BONES: No acute fracture or dislocation. No worrisome bone lesions. SOFT TISSUES: No soft tissue swelling. No foreign body. OTHER: Bandage artifact IMPRESSION: No radiopaque foreign body or posttraumatic bony change related to the laceration. TECHNICAL DOCUMENTATION: JOB ID: [id number] [email or web address] Rights Reserved Reading location - IP/workstation name: [email or web address]
--- NOTE | 2018-09-28 14:28 | ER Document Report ---
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 He states that he did not know when his last tetanus shot was so he was given 1 while in the pit [place]. He has an extensive orthopedic history with fractures to his arm the face with surgeries to each and nerve damage to the left side. He also has back pain chronic from arthritis and strep no in the back. He also has a history of high blood pressure cholesterol cluster headaches hiatal hernia reflux kidney stones. Patient is alert oriented respirations regular and unlabored speaking in full sentences walks with a even steady gait. Bleeding is not controlled at this time it is bleeding but it is not pulsating. TRAVEL OUTSIDE OF THE [place] 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 Lives with: Family Family History: None, Reviewed & Not Pertinent Patient has suicidal ideation: No Patient has homicidal ideation: No - Past Medical History Cardiac Medical History: Reports: Hx Hypercholesterolemia, Hx Hypertension Pulmonary Medical History: Reports: None EENT Medical History: Reports: None Neurological Medical History: Reports: Hx Migraine - Cluster headaches Renal/ Medical History: Reports: Hx Kidney Stones Malignancy Medical History: Reports None GI Medical History: Reports: Hx Gastritis, Hx Gastroesophageal Reflux Disease, Hx Hiatal Hernia, Hx Ulcer, Hx Colonoscopy, Hx Endoscopy Musculoskeletal Medical History: Reports Hx Arthritis, Reports Hx Musculoskeletal Deformity, Reports Hx Musculoskeletal Trauma, Reports Other - Shrapnel and back Skin Medical History: Reports None Psychiatric Medical History: Reports: None Traumatic Medical History: Reports: Hx Fractures - Arm knee face Past Surgical History: Reports: Hx Orthopedic Surgery - Arm the face - Immunizations Immunizations up to date: Yes Hx Diphtheria, Pertussis, Tetanus Vaccination: Yes - 09/28/2008 Review of Systems - Review of Systems Constitutional: No symptoms reported EENT: No symptoms reported Cardiovascular: No symptoms reported Respiratory: No symptoms reported Gastrointestinal: No symptoms reported Genitourinary: No symptoms reported Male Genitourinary: No symptoms reported Musculoskeletal: No symptoms reported Skin: Other - Laceration left index finger Hematologic/Lymphatic: No symptoms reported Neurological/Psychological: No symptoms reported -: Yes All other systems reviewed and negative Physical Exam - Vital signs Vitals: Temp Pulse Resp BP Pulse Ox 99.3 F 107 H 17 151/81 H 100 09/28/18 13:09 09/28/18 13:09 09/28/18 13:09 09/28/18 13:09 09/28/18 13:09 Interpretation: Normal - General General appearance: Appears well, Alert - HEENT Head: Normocephalic, Atraumatic Eyes: Normal Pupils: PERRL - Respiratory Respiratory status: No respiratory distress Chest status: Nontender Breath sounds: Normal Chest palpation: Normal - Cardiovascular Rhythm: Regular Heart sounds: Normal auscultation Murmur: No - Abdominal Inspection: Normal Distension: No distension Bowel sounds: Normal Tenderness: Nontender Organomegaly: No organomegaly - Back Back: Normal, Nontender - Extremities General upper extremity: Normal inspection, Nontender, Normal color, Normal ROM, Normal temperature General lower extremity: Normal inspection, Nontender, Normal color, Normal ROM, Normal temperature, Normal weight bearing. No: Lizy's sign - Neurological Neuro grossly intact: Yes Cognition: Normal Orientation: AAOx4 [place] Coma Scale Eye Opening: Spontaneous [place] Coma Scale Verbal: Oriented [place] Coma Scale Motor: Obeys Commands [place] Coma Scale Total: 15 Speech: Normal Motor strength normal: LUE, RUE, LLE, RLE Sensory: Normal - Psychological Associated symptoms: Normal affect, Normal mood - Skin Skin Temperature: Warm Skin Moisture: Dry Skin Color: Normal Skin irregularity: Laceration - Left index finger Location of irregularity: Extremities - Left index finger Irregularity with: Tenderness Course - Vital Signs Vital signs: Temp Pulse Resp BP Pulse Ox 98.4 F 95 17 142/85 H 97 09/28/18 15:26 09/28/18 15:26 09/28/18 13:09 09/28/18 15:26 09/28/18 15:26 - Diagnostic Test Radiology reviewed: Image reviewed, Reports reviewed Procedures - Immobilization Left Finger 2nd digit Time completed: 15:17 Pre-Proc Neuro Vasc Exam: Normal Immobilizer type: Finger splint (Static) Performed by: PCT Post-Proc Neuro Vasc Exam: Normal Alignment checked and good: Yes - Laceration/Wound Repair Left Finger 2nd digit Time completed: 15:15 Wound length (cm): 4 Wound's Depth, Shape: Superficial Laceration pre-procedure: Sterile PPE donned, Sterile drapes applied, Shur-Clens applied Anesthetic type: 1% Lidocaine Volume Anesthetic (mLs): 5 Wound explored: Contaminated, Foreign body removed Irrigated w/ Saline (mLs): 200 Wound Repaired With: Sutures Suture Size/Type: 5:0, Ethilon Number of Sutures: 7 Layer Closure?: No Post-procedure wound care: Sterile dressing applied, Splint applied Post-procedure NV exam normal: Yes Complications: No Discharge - Discharge Clinical Impression: Laceration of left index finger with foreign body Qualifiers: Encounter type: initial encounter Damage to nail status: without damage Qualified Code(s): S61.221A - Laceration with foreign body of left index finger without damage to nail, initial encounter Condition: Stable Disposition: HOME, SELF-CARE Additional Instructions: Hand Laceration A laceration on the hand can present special problems. It may be difficult to keep the wound dry. Motion of the fingers can disturb the healing edges. Your work may involve exposure to damaging chemicals or water. Keep the wound clean and dry. If you can't keep the cut dry, undisturbed, and free of chemical exposure, please discuss this with the doctor. If any water or chemical gets onto the dressing, remove it, blot the wound dry, then apply a fresh bandage. Dressings should be changed every day. If you feel the stitches pulling as you move the hand, a splint or other form of protection is needed. If any signs of infection occur (swelling, redness, increasing tenderness, red streaks, tender lumps in the armpit, or fever), see the doctor immediately. SOAP CLEANSING: Gently wash the wound daily using a mild soap (like Ivory, Phisoderm, Neutrogena). Use warm water, rubbing gently until all debris, ooze, and crusting have been washed from the wound. Allow to dry briefly (about 10 minutes) after cleaning. Repeat this cleansing at least three times a day for the first two days and then once or twice a day. ANTIBIOTIC OINTMENT PROTECTION: Your wounds are such that dressing them is not practical or optional. After cleansing, you should apply a thin coating of antibiotic ointment (Bacitracin, not Neosporin) to the wounds at least three times daily. This lessens infection risk, and may decrease the amount of scarring. Use a q-tip or dull butter knife, not your finger, to apply this ointment. Any debris or ooze which builds up in the ointment should be gently rubbed off with a sterile gauze pad. Harder crusting may need to be gently scrubbed off with a clean wash cloth with soap and warm water, perhaps applying a warm, wet wash cloth to the wound for ten minutes first. Development of redness, severe itching, or blistering may mean allergy to the ointment. See the doctor. TETANUS IMMUNIZATION GIVEN: You have been given an immunization against tetanus. Please record this in your records. In general, a booster is needed only once every 10 years. The tetanus shot protects against tetanus or "lockjaw," which is a complication of certain wound infections (the tetanus shot cannot protect against the actual infection). The immunization site may become warm and red due to local reaction. If this occurs, apply warm compresses and take aspirin or ibuprofen to reduce inflammation and discomfort. Return for evaluation if the reaction becomes severe. PROPHYLACTIC ANTIBIOTIC: The antibiotics which have been prescribed are designed to decrease the risk of infection. Only certain types of wounds benefit from this -- the typical cut, scrape, or burn DOES NOT require antibiotics. Of course, infection can still occur despite the use of prophylactic antibiotics. Your wound will heal with less chance of an infectious complication if you take the medication as directed. The most important dose is the FIRST dose, so don't delay filling the prescription! Cephalexin The antibiotic you've been prescribed is a member of the cephalosporin class. This type of antibiotic covers a wide variety of infections, including those of the skin, lungs, and urinary tract. It's useful for staph infections. This antibiotic is slightly similar to the penicillin family. In rare cases, a person who is allergic to penicillin will also be allergic to this medication. If you have had a severe allergic reaction to penicillin, and have not taken this antibiotic since that time, notify your doctor. Antibiotics which cover many germs ("broad spectrum" antibiotics) are more likely to cause diarrhea or "yeast" infections. Women prone to vaginal yeast problems may suffer an attack after taking this antibiotic. In infants, oral thrush (white spots "stuck" on the cheek) or yeast diaper rash may result. See your doctor if these problems occur. Call at once if you develop itching, hives, shortness of breath, or lightheadedness. ORAL NARCOTIC MEDICATION: You have been given percocet for pain control. This medication is a narcotic. It's best taken with food, as nausea can result if taken on an empty stomach. Don't operate machinery or drive within six hours of taking this medication . Do not combine this medicine with alcohol, or with any medication which can cause sedation (such as cold tablets or sleeping pills) unless you get permission from the physician. Narcotics tend to cause constipation. If possible, drink plenty of fluids and eat a diet high in fiber and fruits. FOLLOW-UP CARE: Please return to ED or follow-up with primary care in ___3__ days for an in fection check and dressing change. Your sutures should be removed in ___10__ days. To facilitate a timely removal of your sutures, you may return to the Emergency Department at [facility]. You do not need to call for an appointment, but the best time to come in for suture removal is early in the morning. If you have been referred to another physician for follow-up care, call that physicians office for an appointment as you were instructed. If you experience a significant change in your laceration, or if you are concerned there may be an infection (swelling, redness, drainage, increasing tenderness, red streaks, tender lumps in the armpit or groin above the laceration, or fever), return to the Emergency Department immediately re-evaluation. Prescriptions: Cephalexin Monohydrate [Keflex 500 mg Capsule] 500 mg PO QID #20 capsule Forms: Elevated Blood Pressure, Special Work Note, Return to Work Referrals: REBECA LEMA, CADASTRAL SURVEYOR [Primary Care Provider] - Follow up as needed
[2018-09-28] MEDS ORDERED: LIDOCAINE 1% INJ-PF (10 MG/ML) 30 ML SDV ONE (14:33)
[2018-09-28] MEDS ORDERED: LIDOCAINE 1% INJ-PF (10 MG/ML) 30 ML SDV INJ ONE (15:13)
[2018-09-28] MEDS ORDERED: CEPHALEXIN 500 MG CAPSULE PO ONE (15:18)
[2018-09-28 15:27] VITALS: BP 142/85
== END 2018-09-28 15:35 | disposition home or self-care (01) ==
LOC: ER 13:00
DX: S61.211A Laceration without foreign body of left index finger without damage to nail, initial encounter (principal); W29.8XXA Contact with other powered hand tools and household machinery, initial encounter; Y99.0 Civilian activity done for income or pay; Z23 Encounter for immunization; E78.00 Pure hypercholesterolemia, unspecified; I10 Essential (primary) hypertension; Z87.442 Personal history of urinary calculi
CPT/HCPCS: 90471; 90715; 99283

== ENCOUNTER 2019-04-15 11:07 | Emergency (ER) | payer MEDICAID ==
[2019-04-15 11:16] VITALS: BP 127/85
[2019-04-15] MEDS ORDERED: PENICILLIN V POTASSIUM 500 MG TABLET PO ONE (11:33)
[2019-04-15] MEDS ORDERED: LIDOCAINE 2% VISCOUS SOLN 20 ML UDCUP PO ONE (11:33)
--- NOTE | 2019-04-15 11:36 | ER Document Report ---
HPI - HPI Time Seen by Provider: 04/15/19 11:25 Context: Patient is a 34-year-old male who presents emergency department with a chief complaint of tooth pain to tooth #14. He states that there is a chip in it. His pain started yesterday. He has not seen a dentist for this issue. Past medical history of hypertension, PTSD, hiatal hernia, and gastric ulcers. He states he tried to take clove oil and Anbesol, but did not have any relief of his symptoms. Denies any fever, body aches, chills or any other symptoms. - ROS Systems Reviewed and Negative: Yes All other systems reviewed and negative - CONSTITUTIONAL Constitutional: DENIES: Fever, Chills - EENT EENT: DENIES: Sore Throat, Ear Pain, Nasal Drainage-Clear, Congestion Notes: Dental pain to tooth #14 - NEURO Neurology: DENIES: Headache - RESPIRATORY Respiratory: DENIES: Trouble Breathing, Coughing - GASTROINTESTINAL Gastrointestinal: DENIES: Abdominal Pain - REPRODUCTIVE Reproductive: DENIES: : Past Medical History - Social History Smoking Status: Never Smoker Family History: None, Reviewed & Not Pertinent - Past Medical History Cardiac Medical History: Reports: Hx Hypercholesterolemia, Hx Hypertension Denies: Hx Coronary Artery Disease, Hx Heart Attack Pulmonary Medical History: Denies: Hx Asthma, Hx Bronchitis, Hx COPD, Hx Pneumonia Neurological Medical History: Reports: Hx Migraine - Cluster headaches. Denies: Hx Cerebrovascular Accident, Hx Seizures Renal/ Medical History: Reports: Hx Kidney Stones. Denies: Hx Peritoneal Dialysis GI Medical History: Reports: Hx Gastritis, Hx Gastroesophageal Reflux Disease, Hx Hiatal Hernia, Hx Ulcer, Hx Colonoscopy, Hx Endoscopy Musculoskeletal Medical History: Reports Hx Arthritis, Reports Hx Musculosk eletal Deformity, Reports Hx Musculoskeletal Trauma Traumatic Medical History: Reports: Hx Fractures - Arm knee face Past Surgical History: Reports: Hx Orthopedic Surgery - Arm the face - Immunizations Immunizations up to date: Yes Hx Diphtheria, Pertussis, Tetanus Vaccination: Yes - 09/28/2008 Vertical Provider Document - CONSTITUTIONAL Agree With Documented VS: Yes Exam Limitations: No Limitations General Appearance: No Apparent Distress - INFECTION CONTROL TRAVEL OUTSIDE OF THE [place] IN LAST 30 DAYS: No - HEENT HEENT: Atraumatic, Normocephalic, PERRLA Mouth Diagram: 1 - Dental carry with chipped tooth - NECK Neck: Normal Inspection - RESPIRATORY Respiratory: Breath Sounds Normal, No Respiratory Distress - CARDIOVASCULAR Cardiovascular: Regular Rate, Regular Rhythm Pulses: Normal: Radial - MUSCULOSKELETAL/EXTREMETIES Musculoskeletal/Extremeties: FROM - NEURO Level of Consciousness: Awake, Alert, Appropriate - DERM Integumentary: Warm, Dry, No Rash Course - Re-evaluation Re-evalutation: 04/15/19 11:36 Patient's physical exam and history is most consistent with a infected tooth. Patient is able to swallow, no facial swelling noted, airway is patent, vital signs are normal. I do not suspect Errol's angina, peritonsilar abscess, or airway obstruction. The patient will be started on oral antibiotics. I have given the patient education on their antibiotics. Patient was given instructions to follow-up with a dentist this week. Return precautions were given. Verbal discharge instructions were given. Patient verbalized under standing. Patient is stable for discharge. - Vital Signs Vital signs: Temp Pulse Resp BP Pulse Ox 98.4 F 96 16 127/85 H 97 04/15/19 11:13 04/15/19 11:13 04/15/19 11:13 04/15/19 11:13 04/15/19 11:13 Discharge - Discharge Clinical Impression: Toothache Condition: Stable Disposition: HOME, SELF-CARE Instructions: Penicillin V K ([facility]), Toothache ([facility]) Additional Instructions: You have been seen in the emergency department for a toothache. You may take Tylenol 1000 mg every 6 hours as needed for the pain. You have also been given topical lidocaine. Placed that to the affected tooth as needed to help with pain. You have also been prescribed antibiotics. Please take the antibiotics as prescribed, even if you start to feel better. If you develop a fever greater than 100.4 F, or have any symptoms that are worrisome to you, please return to the emergency department. Please follow-up with a dentist this week in regards to your visit. Prescriptions: Penicillin V Potassium [Penicillin Vk 500 mg Tablet] 500 mg PO QID #28 tablet Referrals: REBECA LEMA NP [Primary Care Provider] - Follow up as needed [facility] [Provider Group] - Follow up as needed
== END 2019-04-15 11:50 | disposition home or self-care (01) ==
LOC: ER 11:07
DX: K02.9 Dental caries, unspecified (principal); K08.89 Other specified disorders of teeth and supporting structures; I10 Essential (primary) hypertension
CPT/HCPCS: J3490 ×2; 99282

== ENCOUNTER 2019-05-03 19:12 | Emergency (ER) | payer OTHER, MEDICAID ==
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
--- NOTE | 2019-05-03 20:16 | RADIOLOGY REPORT (SQ) ---
3 VIEWS OF RIGHT THIRD DIGIT EXAM DATE: 05/03/2019 7:42 PM CDT HISTORY: crush injury. COMPARISON: None. FINDINGS: There is an acute moderately comminuted and mildly displaced fracture of the third distal phalangeal tuft with overlying soft tissue swelling. No dislocation. No radiopaque foreign body is identified. IMPRESSION: Acute comminuted fracture of the third distal phalanx.
--- NOTE | 2019-05-03 23:41 | ER Document Report ---
ED Hand/Wrist Injury - General Chief Complaint: Finger Injury Stated Complaint: RIGHT HAND FINGER INJURY Time Seen by Provider: 05/03/19 19:38 Primary Care Provider: REBECA LEMA NP [Primary Care Provider] - Follow up as needed Mode of Arrival: Ambulatory Information source: Patient TRAVEL OUTSIDE OF THE [place] IN LAST 30 DAYS: No - HPI Patient complains to provider of: Injury to right distal third finger Injury to: Middle finger Onset: This morning Where: Work Timing: Constant Quality of pain: Dull Context: Crush - Patient states that his right middle finger was crushed under some car machinery while he was working this morning. Patient states he was unable to leave work earlier to come in to be treated for the injury. Patient states his last tetanus booster was approximately 1 year ago Notes: Patient presents complaining of pain and swelling to his right distal third fingertip. Patient states he sustained a crush injury to the fingertip earlier today. Patient states he is right-hand dominant. Patient states he had his last tetanus booster approximately 1 year ago. - Related Data Allergies/Adverse Reactions: NSAIDS (Non-Steroidal Anti-Inflamma Allergy (Severe, Verified 09/28/18 13:06) SWELLING BLEEDING banana Allergy (Intermediate, Verified 09/28/18 13:06) ITCHING Past Medical History - General Information source: Patient - Social History Smoking Status: Current Some Day Smoker Chew tobacco use (# tins/day): No Frequency of alcohol use: Occasional Drug Abuse: None Family History: None, Reviewed & Not Pertinent Patient has suicidal ideation: No Patient has homicidal ideation: No - Past Medical History Cardiac Medical History: Reports: Hx Hypercholesterolemia, Hx Hypertension Denies: Hx Coronary Artery Disease, Hx Heart Attack Pulmonary Medical History: Denies: Hx Asthma, Hx Bronchitis, Hx COPD, Hx Pneumonia Neurological Medical History: Reports: Hx Migraine - Cluster headaches. Denies: Hx Cerebrovascular Accident, Hx Seizures Renal/ Medical History: Reports: Hx Kidney Stones. Denies: Hx Peritoneal Dialysis GI Medical History: Reports: Hx Gastritis, Hx Gastroesophageal Reflux Disease, Hx Hiatal Hernia, Hx Ulcer, Hx Colonoscopy, Hx Endoscopy Musculoskeletal Medical History: Reports Hx Arthritis, Reports Hx Musculoskeletal Deformity, Reports Hx Musculoskeletal Trauma Traumatic Medical History: Reports: Hx Fractures - Arm knee face Past Surgical History: Reports: Hx Orthopedic Surgery - Arm the face - Immunizations Immunizations up to date: Yes Hx Diphtheria, Pertussis, Tetanus Vaccination: Yes - 09/28/2008 Review of Systems - Review of Systems Constitutional: No symptoms reported EENT: No symptoms reported Cardiovascular: No symptoms reported Respiratory: No symptoms reported Gastrointestinal: No symptoms reported Genitourinary: No symptoms reported Male Genitourinary: No symptoms reported Musculoskeletal: See HPI Skin: See HPI Hematologic/Lymphatic: No symptoms reported Neurological/Psychological: No symptoms reported Physical Exam - Vital signs Vitals: Temp Pulse Resp BP Pulse Ox 98.2 F 89 18 138/94 H 99 05/03/19 19:34 05/03/19 19:34 05/03/19 19:34 05/03/19 19:34 05/03/19 19:34 - General General appearance: Appears well In distress: None - HEENT Head: Normocephalic, Atraumatic Eyes: Normal Conjunctiva: Normal Cornea: Normal - Extremities Hand: Nail injury, Other - The right distal third finger is significant for a subungual hematoma as well as surrounding soft tissue swelling. There is no obvious deformity. Cap refill is less than 2 seconds. Range of motion at the DIP is limited secondary to pain. Sensation and motor is otherwise grossly intact. Patient has no other injury or area of tenderness present on his right hand. - Neurological Neuro grossly intact: Yes Cognition: Normal Orientation: AAOx4 [place] Coma Scale Eye Opening: Spontaneous [place] Coma Scale Verbal: Oriented [place] Coma Scale Motor: Obeys Commands [place] Coma Scale Total: 15 Speech: Normal Cranial nerves: Normal - Psychological Associated symptoms: Normal affect, Normal mood - Skin Skin Temperature: Warm Skin Moisture: Dry Skin irregularity: other - There is a small amount of macerated tissue on the ulnar aspect of the distal third fingertip adjacent to the nail. Course - Re-evaluation Re-evalutation: 05/04/19 00:25 Patient is in no acute distress at this time. Patient tolerated digital block of right third finger and trephination of some ungual hematoma well. - Vital Signs Vital signs: Temp Pulse Resp BP Pulse Ox 98.2 F 89 18 138/94 H 99 05/03/19 19:34 05/03/19 19:34 05/03/19 19:34 05/03/19 19:34 05/03/19 19:34 - Diagnostic Test Radiology reviewed: Reports reviewed Procedures - Immobilization Right 3rd digit Pre-Proc Neuro Vasc Exam: Normal Immobilizer type: Finger protection, Finger splint (Static) Performed by: RN - Nail Trephanation/Removal Right Hand 3rd digit Time completed: 00:25 - Right third finger was anesthetized using a digital block. 1 cc of 2% lidocaine without epi was injected at the base of the right third finger on each side with good effect. Nail Trepanation/Removal Location: Right third finger nail was trephinated Method of Drainage: Nail cauterized Sterile Dressing Applied: Yes Finger Splint: Yes Discharge - Discharge Clinical Impression: Phalanx, distal fracture of finger, Subungual hematoma of finger Condition: Good Disposition: HOME, SELF-CARE Instructions: Tuft Fracture of the Finger ([facility]), Subungual Hematoma ([facility]) Additional Instructions: Fractured Finger There is a fracture in your finger. The bone is straight and in good position to heal. The doctor has assessed the seriousness of the fracture and has explained your treatment plan. Usually the finger will be splinted until fracture healing is complete. This is usually about three or four weeks. At that time, the injured finger may be taped to the next finger to provide a moving splint for longer protection. The first few days after the injury, the finger should be kept elevated and cold (with ice packs). This decreases the swelling and pain. You should contact the doctor or return at once if pain or swelling become severe, or if the finger becomes numb. Some degree of bruising is normal with a finger fracture.Return to the Emergency Department without delay if any worse. Prescriptions: Oxycodone HCl/Acetaminophen [Percocet 5-325 mg Tablet] 1 - 2 tab PO Q4H PRN #20 tablet PRN Reason: For Pain Referrals: REBECA LEMA NP [Primary Care Provider] - Follow up as needed KEILA HOLDEN JR, DO [ACTIVE PROVISIONAL STAFF] - Follow up in 1 week
[2019-05-03] MEDS ORDERED: LIDOCAINE 2% INJ (20 MG/ML) 20 ML MDV INJ ONE (23:47)
[2019-05-04] MEDS ORDERED: OXYCODONE-ACETAMINOPHEN 5-325 MG TABLET PO ONE (00:39)
[2019-05-04] MEDS ORDERED: TETRACAINE HCL 0.5% OPH SOLN 4 ML OU ONE (01:26)
[2019-05-04 01:39] VITALS: BP 145/92
== END 2019-05-04 01:38 | disposition home or self-care (01) ==
LOC: ER 19:12
PROC: 0HBQXZZ Excision of Finger Nail, External Approach (ICD-10-PCS; principal; 2019-05-03)
PROC: 2W3JX1Z Immobilization of Right Finger using Splint (ICD-10-PCS; 2019-05-03)
DX: S62.632A Displaced fracture of distal phalanx of right middle finger, initial encounter for closed fracture (principal); S60.10XA Contusion of unspecified finger with damage to nail, initial encounter; M79.644 Pain in right finger(s); M79.89 Other specified soft tissue disorders; W23.0XXA Caught, crushed, jammed, or pinched between moving objects, initial encounter; F17.200 Nicotine dependence, unspecified, uncomplicated; I10 Essential (primary) hypertension
CPT/HCPCS: 99283; 73140; 11765; 29130; J3490 ×2